=== PATIENT | female | born 1955 | race Caucasian/White ===

== ENCOUNTER 2016-12-22 21:56 | Emergency (ER) | payer MEDICAID ==
[2016-12-22 22:02] VITALS: BP 146/72; BMI 30.2
--- NOTE | 2016-12-22 23:21 | DR.GENAD ---
HPI - PCP Primary Care Physician: [facility] - Complaint/Symptoms Chief Complaint Doctors Comments: History as stated. Patient states that has not had a sinus infection for several years but thinks that is what she has. Chief Complaint:: sinus infection, sinus drainage, c/c/c since last friday. fever since Self Treatment fo Chief Complaint: grace kalebter for sinus - Source History Provided: Patient - Mode of Arrival Mode of Arrival: Ambulatory - Timing Onset of Chief Complaint: 12/17/16 PMH - PMH Past Medical History: Yes Past Medical History: Seizures, Asthma Past Surgical History: Yes Surgical History: , Hysterectomy, Other Past Surgical History Comment: vns for seizure activity - Family History History of Family Medical Conditions: Yes Family Medical History: Diabetes Mellitus, [place], Coronary Artery Disease, Hypertension - Social History Type of Tobacco Use: None Alcohol Use: None Do you use any recreational Drugs:: No Lives With: Family Lives Where: Home - infectious screening Have you traveled outside the country in the last 6 months?: No Isolation: Standard ROS - Review of Systems Constitutional: No Symptoms Reported Eyes: No Symptoms Reported ENTM: No Symptoms Reported Respiratoy: No Symptoms Reported Cardiovascular: No Symptoms Reported Gastrointestinal/Abdominal: No Symptoms Reported Genitourinary: No Symptoms Reported Neurological: No Symptoms Reported Musculoskeletal: No Symptoms Reported Integumentary: No Symptoms Reported Hematologic/Lymphatic: No Symptoms Reported Endocrine: No Symptoms Reported Psychiatric: No Symptoms Reported All Other Systems: Reviewed and Negative PE - Vital Signs Vitals: Temperature 98.1 F Pulse Rate 86 Respiratory Rate 16 Blood Pressure 146/72 O2 Sat by Pulse Oximetry 97 - General Limitations: No Limitations General Appearance: Alert, In No Apparent Distress, Appears Intoxicated - Head Head Exam: Normal Inspection, Atraumatic - Eyes Eye exam: Normal Appearance, PERRL, EOMI - ENT ENT Exam: Normal Exam External Ear Exam: Normal External Inspection TM/Canal Exam: Bilateral Normal Nose Exam: Sinus Tenderness (right maxillary) Mouth Exam: Normal Inspection Throat Exam: Normal Inspection - Neck Neck Exam: Normal Inspection - Chest Chest Inspection: Normal Inspection - Respiratory Respiratory Exam: Normal Lung Sounds Bilat Respiratory Exam: Bilateral Clear to Auscultation - Cardiovascular Cardiovascular Exam: Regular Rate, Normal Rhythm - Abdominal Exam Abdominal Exam: Normal Inspection Abdominal Tenderness: negative: RUQ, RLQ, LUQ, LLQ, Epigastrium, Suprapubic, Diffuse, Mild, Moderate, Severe, Other - Extremities Extremities Exam: Normal Inspection - Back Back Exam: Normal Inspection - Neurologic Neurological Exam: Alert, Oriented X3, CN II-XII Intact - Psychiatric Psychiatric Exam: Normal Affect - Skin Skin Exam: Warm, Dry, Intact ROR - XRAY XRAY Interpreted by: Radiologist (CT Sinus: right maxillary sinusitis) - Diagnosis Discharge Problem: Right maxillary sinusitis - Discharge Plan Condition: Stable - Follow ups/Referrals Follow ups/Referrals: [facility],None [Primary Care Provider] - 3 days - Instructions
--- NOTE | 2016-12-23 00:27 | CT ---
EXAM: CT SINUS WITHOUT CONTRAST INDICATION: On axillary sinus pain COMPARISION: No priors available for comparison TECHNIQUE: Spiral CT of the face and sinuses was obtained and thin slice axial, sagittal, and coronal reformats were created using the source data. No contrast was administered for this examination. FINDINGS: There is mucosal thickening in the right maxillary sinus. The remaining paranasal sinuses are clear. The orbits and intraorbital soft tissues appear unremarkable. No fracture or destructive intraosseo us lesion. The facial soft tissues appear unremarkable. IMPRESSION: Right maxillary sinusitis. Reported By:
[2016-12-23] MEDS ORDERED: BACTRIM DS TAB PO ONE ×2 (00:43→00:44)
== END 2016-12-23 00:55 | disposition home or self-care (01) ==
LOC: ER 21:56
DX: J32.0 Chronic maxillary sinusitis (principal)
CPT/HCPCS: 70486; 99282